=== PATIENT | male | born 1955 | race Caucasian/White ===

== ENCOUNTER 2018-07-18 09:39 | Outpatient (CLI) | payer BC ==
--- NOTE | 2018-07-18 17:51 | MRI ---
MRI LUMBAR SPINE WITHOUT CONTRAST: 07/18/18 HISTORY: Patient fell on June 23. Started having low back pain. COMPARISON: None. CORRELATION: Lumbar spine radiograph series 07/09/18. FINDINGS: There is a subacute fracture involving the L4 vertebral body with heterogeneous T1 marrow signal hypo intensity, T2 and STIR hyperintensity. No significant retropulsion. Mild loss of vertebral body heigh t. Symmetric signal intensity of the psoas muscles. Appropriate signal intensity in the visualized solid organs. Conus medullaris terminates at the inferior aspect of L1. T12-L1: Adequate disc hydration. No significant central canal stenosis. Neural foramina are patent. L1-L2: Adequate disc hydration. No significant central canal stenosis. Neural foramina are patent. L2-L3: Mild loss of disc space height. No significant posterior disc abnormality. No significant cent ral canal stenosis. Neural foramina are patent. L3-L4: Mild loss of disc space height along with disc desiccation. There is a broad based disc bulge, minimal ligamentum flavum thickening and mild facet hypertrophy that results in mild central canal s tenosis. There is narrowing of the right subarticular zone with partial obscuration traversing the r ight L4 nerve root. Left subarticular zone is unremarkable. Moderate right and mild left neural chele inal narrowing. L4-L5: Adequate disc hydration. No significant central canal stenosis. Neural foramina are mildly sergey rowed. L5-S1: Adequate disc hydration. No significant central canal stenosis. Neural foramina are mildly sergey rowed bilaterally. IMPRESSION: 1. Subacute L4 compression fracture. No significant retropulsion. There is mild loss of vertebra l body height. 2. Narrowing of the right subarticular zone at L3-L4 with mass effect upon the traversing right L4 nerve root. POS: [facility]
== END 2018-07-18 09:40 | disposition home or self-care (01) ==
LOC: BICMRI 09:39
PROVIDERS: ATTEND Family Medicine
DX: M54.5 Low back pain (principal); S32.019A Unspecified fracture of first lumbar vertebra, initial encounter for closed fracture; M48.061 Spinal stenosis, lumbar region without neurogenic claudication
CPT/HCPCS: 72148

== ENCOUNTER 2023-02-23 13:11 | Outpatient (CLI) | payer MEDICARE, OTHER ==
[2023-02-23 14:32] LABS: #Basophils 0.1 10x3/uL (0.0-0.2); #Eosinphils 0.3 10x3/uL (0.0-0.5); #Neutrophils 9.1 10x3/uL (1.5-8.4); %Basophils 0.5 % (0.0-2.0); %Eosinophils 2.4 % (0.0-6.0); %Lymphocytes 19.8 % (18.0-47.0); %Monocytes 7.8 % (0.0-10.0); Hematocrit 39.8 % (38.8-50.0); Hemoglobin 13.4 g/dL (13.5-17.5); Mean Corpuscular HGB CONC 33.7 g/dL (32.0-36.0); Mean Corpuscular Hemoglobin 30.6 pg (27.0-33.0); Mean Corpuscular Volume 90.9 fl (81.2-95.1); Mean Platelet Volume 9.5 fl (7.4-10.4); Platelet Count 320 10x3/uL (150-450); RBC Distribution Width 12.7 % (11.5-14.5); Red Blood Cell (RBC) Count 4.38 10x6/uL (4.32-5.72); White Blood Cell (WBC) Count 13.2 10x3/uL (3.5-10.5)
[2023-02-23 14:40] LABS: INR-International Normal Ratio 0.9
[2023-02-23 14:48] LABS: Anion Gap 13 mmol/L (10-20); BUN (Urea Nitrogen) 12 mg/dL (8.4-25.7); Calc. Creatinine Clearance 0 mL/min (70-130); Calcium 9.3 mg/dL (7.8-10.44); Carbon Dioxide 26 mmol/L (23-31); Chloride 104 mmol/L (98-107); Estimated GFR 96; Glucose 93 mg/dL (80-115); Potassium 4.4 mmol/L (3.5-5.1); Sodium 139 mmol/L (136-145)
== END 2023-02-23 13:12 | disposition home or self-care (01) ==
LOC: LABBT 13:11
PROVIDERS: ATTEND Orthopaedic Surgery
DX: Z01.818 Encounter for other preprocedural examination (principal); M16.11 Unilateral primary osteoarthritis, right hip
CPT/HCPCS: 80048; 85025; 85610; 87081; 93005; 93010

== ENCOUNTER 2023-02-27 06:41 | Observation (INO) | payer MEDICARE, OTHER ==
[2023-02-23 14:11] VITALS: BMI 29.2
[2023-02-27] MEDS ORDERED: Tranexamic Acid 1,000 MG/10 ML VIAL ONE (08:04)
[2023-02-27] MEDS ORDERED: Vancomycin (BATCH) 1.5 GRAM/300 ML BAG ONE (08:04)
[2023-02-27] MEDS ORDERED: Sodium Chloride 0.9% 100 ML ONE ×2 (08:04→08:49)
[2023-02-27] MEDS ORDERED: fentaNYL 50 mcg/mL 1 mL Vial ONE ×2 (08:18→08:50)
[2023-02-27] MEDS ORDERED: Midazolam HCl 2 mg/2 ml Vial ONE ×2 (08:18→08:56)
[2023-02-27] MEDS ORDERED: Bupivacaine PF 0.5% 30 ML VIAL ONE ×2 (08:18→11:07)
[2023-02-27] MEDS ORDERED: Lidocaine 1% PF 5 ML VIAL ONE (08:30)
[2023-02-27] MEDS ORDERED: Bupivacaine HCl 0.5%/Epinephrine 1:200,000/PF 30 ml Vial ONE (08:45)
[2023-02-27] MEDS ORDERED: CEFAZOLIN 2 GM VIAL ONE (08:49)
[2023-02-27] MEDS ORDERED: Ondansetron PF 4 MG/2 ML Vial IVP PRN (09:01)
[2023-02-27] MEDS ORDERED: diphenhydrAMINE 25 MG CAP PO PRN (09:01)
[2023-02-27] MEDS ORDERED: Promethazine HCl 25 MG/ML VIAL IM PRN (09:01)
[2023-02-27] MEDS ORDERED: Acetaminophen 325 MG TAB PO PRN (09:01)
[2023-02-27] MEDS ORDERED: fentaNYL 50 mcg/mL 1 mL Vial SLOW IVP PRN ×2 (09:01)
[2023-02-27] MEDS ORDERED: Zolpidem Tartrate 5 MG TAB PO PRN ×2 (09:01→09:21)
[2023-02-27] MEDS ORDERED: Non-Formulary Item 1 EACH (Zolpidem Tartrate [Ambien] 10 MG Tablet) PO PRN (09:03)
[2023-02-27] MEDS ORDERED: PROPOFOL 20 ML ONE (10:25)
[2023-02-27] MEDS ORDERED: Ondansetron HCl/PF 4 MG/2 ML Vial IVP PRN (10:54)
[2023-02-27] MEDS: Sodium Chloride 0.9% 1,000 ML IV SCH ×2 (12:10→19:59)
[2023-02-27] MEDS: HYDROcodone/Acetaminophen 10/325 mg Tablet PO PRN ×3 (12:10→20:34)
[2023-02-27] MEDS: Ketorolac Tromethamine 30 MG/ML VIAL IVP SCH ×2 (13:09→21:12)
[2023-02-27] MEDS: CEFAZOLIN 2 GM in Sodium Chloride 0.9% 100 ML IVPB SCH (16:15)
[2023-02-27] MEDS: Aspirin 81 mg Enteric Coated Tablet PO SCH (20:33)
[2023-02-27] MEDS: Senokot S 8.6-50 MG TAB PO SCH (20:33)
[2023-02-27] MEDS: Ferrous Gluconate 324 MG TAB PO SCH (20:33)
[2023-02-28] MEDS: CEFAZOLIN 2 GM in Sodium Chloride 0.9% 100 ML IVPB SCH (00:24)
[2023-02-28] MEDS: HYDROcodone/Acetaminophen 10/325 mg Tablet PO PRN ×4 (00:39→13:47)
[2023-02-28] MEDS: Sodium Chloride 0.9% 1,000 ML IV SCH (04:42)
[2023-02-28] MEDS: Ketorolac Tromethamine 30 MG/ML VIAL IVP SCH ×2 (05:08→13:48)
[2023-02-28 05:44] LABS: Hematocrit 36.7 % (42.0-52.0); Hemoglobin 12.4 g/dL (14.0-18.0); Mean Corpuscular HGB CONC 33.8 g/dL (32.0-36.0); Mean Corpuscular Hemoglobin 30.9 pg (27.0-31.0); Mean Corpuscular Volume 91.5 fl (78.0-98.0); Mean Platelet Volume 9.1 fL (7.4-10.4); Platelet Count 328 10x3/uL (130-400); RBC Distribution Width 12.5 % (11.5-14.5); Red Blood Cell (RBC) Count 4.01 mill/uL (4.70-6.10); White Blood Cell (WBC) Count 13.1 10x3/uL (4.8-10.8)
[2023-02-28 08:11] VITALS: TEMP 97.9
[2023-02-28] MEDS ORDERED: Multivitamin W/ Minerals 1 TAB PO SCH (09:00)
[2023-02-28] MEDS: Ferrous Gluconate 324 MG TAB PO SCH (09:47)
[2023-02-28] MEDS: Senokot S 8.6-50 MG TAB PO SCH (09:47)
[2023-02-28] MEDS: Aspirin 81 mg Enteric Coated Tablet PO SCH (09:47)
[2023-02-28 11:58] VITALS: BP 136/76
== END 2023-02-28 14:15 | disposition home or self-care (01) ==
LOC: SDC 06:41 → SURG A 11:59 → SDC 12:24 → SURG A 12:35
PROVIDERS: ADMIT Orthopaedic Surgery; ATTEND Orthopaedic Surgery
PROC: 0SR903Z Replacement of Right Hip Joint with Ceramic Synthetic Substitute, Open Approach (ICD-10-PCS; principal; 2023-02-27)
DX: M16.11 Unilateral primary osteoarthritis, right hip (principal); Z90.89 Acquired absence of other organs
CPT/HCPCS: 27130; 73502; 85027; 97110 ×2; 97116 ×2; 97530 ×2; 97535; C1776; J3010; J3370; 36415; J1885; J2250; J2704; J3490; J7050; S0020